=== PATIENT | male | born 1970 | race Caucasian/White ===

== ENCOUNTER 2019-11-25 11:59 | Emergency (ER) | payer OTHER ==
[~2019-11-25] VITALS: Ht 190.5 cm; Wt 124.0 kg
[2019-11-25] MEDS ORDERED: PHENYLEPHRINE 10 MG/ML IC ONE (13:18)
[2019-11-25] MEDS ORDERED: PSEUDOEPHEDRINE 30 MG TABLET PO ONE (13:20)
[2019-11-25] MEDS ORDERED: LIDOCAINE 2%, 20ML INFIL ONE (13:30)
[2019-11-25] MEDS ORDERED: LIDOCAINE 1%, 10ML INFIL ONE (13:30)
[2019-11-25] MEDS ORDERED: TERBUTALINE 1 MG/ML, 1ML SQ ONE (13:30)
[2019-11-25] MEDS ORDERED: PHENYLEPHRINE 10 MG/ML ONE (13:46)
--- NOTE | 2019-11-25 14:01 | NUR ---
BEDSIDE EXPLAINING PROCEDURE.
--- NOTE | 2019-11-25 14:14 | NUR ---
PT MEDICATED PER MAR WITH EXPLAINATION GIVEN ON HOW MEDS HELP WITH PRIAPISM.
[2019-11-25] MEDS ORDERED: LIDOCAINE-MPF 1%, 5ML ONE (14:34)
--- NOTE | 2019-11-25 14:36 | NUR ---
AT BEDSIDE BEGINNING PROCEDURE.
--- NOTE | 2019-11-25 14:38 | NUR ---
LIDOCAINE AND NEOSYNEPHRINE GIVEN TO DR KEANE FOR PROCEDURE.
--- NOTE | 2019-11-25 15:12 | NUR ---
MD KEANE COMPLETED PROCEDURE. WILL REASSESS PT SOON. PT RESTING COMFORTABLY WITHOUT PAIN. APPROVED APPLE JUICE FOR PT.
--- NOTE | 2019-11-25 15:55 | NUR ---
PT DOES NOT HAVE AN ERECTION AT THIS TIME. AWAITING RE-EVAL BY
--- NOTE | 2019-11-25 16:00 | NUR ---
AT BEDSIDE RE-EXAMINING PT
[2019-11-25 16:14] VITALS: BP 109/54
== END 2019-11-25 16:18 | disposition home or self-care (01) ==
LOC: ED 12:52
DX: N48.30 Priapism, unspecified (principal); I10 Essential (primary) hypertension
CPT/HCPCS: 96372; 99291; J3105